=== PATIENT | male | born 1985 | race Caucasian/White ===

== ENCOUNTER 2017-10-25 13:55 | Emergency (ER) | payer MEDICAID | END 2017-10-25 17:00 | disposition home or self-care (01) | LOC: M ED 13:55 | DX: B86 Scabies (principal); F17.200 Nicotine dependence, unspecified, uncomplicated; F19.11 Other psychoactive substance abuse, in remission; Z79.899 Other long term (current) drug therapy; Z79.2 Long term (current) use of antibiotics; Z88.8 Allergy status to other drugs, medicaments and biological substances | CPT/HCPCS: 99281 ==

== ENCOUNTER 2017-11-07 13:47 | Emergency (ER) | payer MEDICAID | END 2017-11-07 14:40 | disposition left against medical advice (07) | LOC: M ED 13:47 | DX: Z53.29 Procedure and treatment not carried out because of patient's decision for other reasons (principal) ==

== ENCOUNTER 2017-11-30 17:43 | Emergency (ER) | payer MEDICAID ==
[2017-11-30] MEDS ORDERED: MORPHINE 4 MG/ML 1ML VIAL/SYRINGE (J2270) IV (19:00)
[2017-11-30 19:48] LABS: BASO % 0.6 % (0.0-1.0); EOS # 0.1 10^3/uL (0.0-0.50); EOS % 2.2 % (0.0-3.0); HEMATOCRIT 36.8 % (42.0-52.0); HEMOGLOBIN 12.4 g/dl (13.5-17.5); IMMATURE GRANULOCYTE % 0.2 % (0-3.0); LYMPH # 2.1 10^3/uL (1.5-4.5); MEAN CORPUSCULAR HEMOGLOBIN 29.8 pg (27.0-33.0); MEAN CORPUSCULAR HGB CONC 33.7 g/dl (32.0-36.5); MEAN CORPUSCULAR VOLUME 88.5 fl (80.0-96.0); MONO # 0.7 10^3/uL (0.0-0.8); MONO % 10.6 % (0.0-5.0); NEUTROPHILS # 3.6 10^3/uL (1.8-7.7); NEUTROPHILS % 54.4 % (36.0-66.0); PLATELET COUNT, AUTOMATED 232 10^3/uL (150-450); RED BLOOD COUNT 4.16 10^6/uL (4.30-6.10); RED CELL DISTRIBUTION WIDTH 13.3 % (11.5-14.5); WHITE BLOOD COUNT 6.5 10^3/uL (4.0-10.0)
[2017-11-30 20:10] LABS: LACTIC ACID SEPSIS PROTOCOL 1.4 MMOL/L (0.4-2.0)
[2017-11-30 20:10] LABS: ALBUMIN 3.6 GM/DL (3.2-5.2); ALKALINE PHOSPHATASE 54 U/L (45-117); ALT/SGPT 28 U/L (12-78); ANION GAP 7 MEQ/L (8-16); AST/SGOT 33 U/L (7-37); BILIRUBIN,DIRECT 0.1 MG/DL (0.0-0.2); BILIRUBIN,TOTAL 0.5 MG/DL (0.2-1.0); BLOOD UREA NITROGEN 24 MG/DL (7-18); C REACTIVE PROTEIN QUANTITATIV < 0.30 MG/DL (0.00-0.30); CALCIUM LEVEL 8.8 MG/DL (8.5-10.1); CARBON DIOXIDE LEVEL 27 MEQ/L (21-32); CHLORIDE LEVEL 107 MEQ/L (98-107); CREATININE FOR GFR 0.98 MG/DL (0.70-1.30); GLOMERULAR FILTRATION RATE > 60.0 (>60); GLUCOSE, FASTING 97 MG/DL (70-100); POTASSIUM SERUM 4.5 MEQ/L (3.5-5.1); SODIUM LEVEL 141 MEQ/L (136-145); TOTAL PROTEIN 7.6 GM/DL (6.4-8.2)
[2017-11-30 20:11] LABS: ERYTHROCYTE SEDIMENTATION RATE 13 mm/hr (0-15)
[2017-11-30] MEDS: KETOROLAC 30 MG/ML VIAL (J1885) IV (20:18)
[2017-11-30] MEDS: METOCLOPRAMIDE INJ 10MG/2ML VIAL (J2765) IV (20:18)
[2017-11-30] MEDS: NS 500 ML IV (20:18)
[2017-11-30] MEDS: VANCOMYCIN HCL 500 MG in D5W MINI-BAG PLUS 100 ML IV (21:11)
== END 2017-11-30 22:12 | disposition home or self-care (01) ==
LOC: M ED 17:43
DX: N50.811 Right testicular pain (principal); Z87.438 Personal history of other diseases of male genital organs; B19.20 Unspecified viral hepatitis C without hepatic coma; F41.9 Anxiety disorder, unspecified; F33.9 Major depressive disorder, recurrent, unspecified; Z79.890 Hormone replacement therapy
CPT/HCPCS: J1885

== ENCOUNTER 2017-12-02 10:57 | Emergency (ER) | payer MEDICAID ==
[2017-12-02] MEDS: IBUPROFEN 400 MG TAB PO (12:54)
[2017-12-02] MEDS: AUGMENTIN 875 MG TAB PO (12:54)
== END 2017-12-02 13:02 | disposition home or self-care (01) ==
LOC: M ED 10:57
DX: K02.9 Dental caries, unspecified (principal); K04.7 Periapical abscess without sinus; B18.2 Chronic viral hepatitis C; Z98.890 Other specified postprocedural states; Z86.14 Personal history of Methicillin resistant Staphylococcus aureus infection; Z79.899 Other long term (current) drug therapy
CPT/HCPCS: 99282